=== PATIENT | male | born 1990 | race Caucasian/White ===

== ENCOUNTER 2016-09-11 00:31 | Emergency (ER) | payer SELFPAY ==
[~2016-09-11] VITALS: Ht 177.8 cm; Wt 68.0 kg
[2016-09-11 00:40] VITALS: BP 118/86
[2016-09-11] MEDS ORDERED: PENI500T PO (00:49)
[2016-09-11] MEDS ORDERED: HYDR-971 PO (00:49)
--- NOTE | 2016-09-11 00:50 | PHYS DOC ---
Past Medical History Past Medical History: No Pertinent History Past Surgical History: Appendectomy, Other Additional Past Surgical Histo: left arm surgery x 2 Alcohol Use: Rarely Drug Use: None Adult General Chief Complaint Chief Complaint: DENTAL PROBLEM HPI HPI Patient is a 25 year old male who presents with dental pain intermittently for several weeks but worsened the last day. Reports episodes of vomiting due to pain. Denies abdominal pain, diarrhea, fever. Review of Systems Review of Systems Constitutional: Denies fever or chills Eyes: Denies change in visual acuity, redness, or eye pain HENT: Denies nasal congestion or sore throat. Left upper dental pain Respiratory: Denies cough or shortness of breath Cardiovascular: No additional information not addressed in HPI GI: Denies abdominal pain, nausea, vomiting, bloody stools or diarrhea : Denies dysuria or hematuria Musculoskeletal: Denies back pain or joint pain Integument: Denies rash or skin lesions Neurologic: Denies headache, focal weakness or sensory changes [] Endocrine: Denies polyuria or polydipsia [] Current Medications Current Medications Current Medications Medications (Trade) Dose Ordered Sig/[place] Start Time Stop Time Status Last Admin Dose Admin Acetaminophen/ Hydrocodone Bitart (Lortab 5/325) 1 tab 1X ONCE 09/11/16 01:00 09/11/16 01:01 DC 09/11/16 00:51 1 TAB Ondansetron HCl (Zofran Odt) 4 mg 1X ONCE 09/11/16 01:00 09/11/16 01:01 DC 09/11/16 00:51 4 MG Allergies Allergies Allergies Coded Allergies Type Severity Reaction Last Updated Verified No Known Drug Allergies 05/10/14 No Physical Exam Physical Exam Constitutional: Well developed, well nourished, no acute distress, non-toxic appearance. HENT: Normocephalic, atraumatic, bilateral external ears normal, oropharynx moist, no oral exudates, nose normal. Several dental caries throughout with broken teeth. No abscess present Eyes: PERRLA, EOMI, conjunctiva normal, no discharge. Neck: Normal range of motion, no tenderness, supple, no stridor. Cardiovascular:Heart rate regular rhythm, no murmur [] Lungs & Thorax: Bilateral breath sounds clear to auscultation [] Abdomen: Bowel sounds normal, soft, no tenderness, no masses, no pulsatile masses. Skin: Warm, dry, no erythema, no rash. [] Back: No tenderness, no CVA tenderness. [] Extremities: No tenderness, no cyanosis, no clubbing, ROM intact, no edema. [] Neurologic: Alert and oriented X 3, normal motor function, normal sensory function, no focal deficits noted. [] Psychologic: Affect normal, judgement normal, mood normal. [] Current Patient Data Vital Signs Vital Signs Date Time Temp Pulse Resp B/P Pulse Ox O2 Delivery O2 Flow Rate FiO2 09/11/16 00:40 98.6 74 22 99 Room Air 98.6 EKG EKG [] Radiology/Procedures Radiology/Procedures [] Impressions: . Infected dental caries Course & Med Decision Making Course & Med Decision Making Pertinent Labs and Imaging studies reviewed. (See chart for details) Tolerated po without difficulty Dragon Disclaimer Dragon Disclaimer This electronic medical record was generated, in whole or in part, using a voice recognition dictation system. Departure Departure Impression: Primary Impression: Infected dental caries Disposition: HOME, SELF-CARE Condition: STABLE Referrals: NON,STAFF (PCP) Patient Instructions: Dental Caries, Dental Pain, [id number] Additional Instructions: 1. Take medication as prescribed. 2. Follow up with dentist this week 3. Return if unable to tolerate medication or if new symptoms occur such as abdominal pain, fever or any other problems or concerns Scripts Penicillin V Potassium 500 Mg Tablet1 Tab PO TID #30 TAB Prov:IBRAHIMA DUARTE APRN 09/11/16 Hydrocodone/Apap 5-325 ([place] 5-325 Tablet)1 Each Tablet1 Tab PO PRN Q6HRS PRN PAIN #10 TAB Prov:IBRAHIMA DUARTE APRN 09/11/16 IBRAHIMA DUARTE APRN Sep 11, 2016 00:50
[2016-09-11] MEDS ORDERED: HYDROCODONE/APAP 5/325MG TABLET. PO ONE (01:00)
[2016-09-11] MEDS ORDERED: ONDANSETRON ODT 4 MG TAB.RAPDIS PO ONE (01:00)
== END 2016-09-11 00:53 | disposition home or self-care (01) ==
LOC: ER 00:31
DX: K02.9 Dental caries, unspecified (principal)
CPT/HCPCS: 99283; Q0162